=== PATIENT | female | born 1985 | race Caucasian/White ===

== ENCOUNTER 2023-06-03 08:53 | Outpatient (CLI) | payer BC, SELFPAY | END 2023-06-03 08:54 | disposition home or self-care (01) | PROVIDERS: PCP Physician Assistant Medical; Visit Provider Internal Medicine | DX: E07.89 Other specified disorders of thyroid (principal) | CPT/HCPCS: 80053; 84439; 84443; 84481; 86376 ==

== ENCOUNTER 2023-06-04 12:07 | Outpatient (CLI) | payer BC, SELFPAY ==
--- NOTE | 2023-06-04 12:15 | CRLHL7_ITS ---
For Patients: As a result of the Century Cures Act, medical imaging exams and procedure reports are released immediately into your electronic medical record. You may view this report before your referring provider. If you have questions, please contact your health care provider. INDICATION: THYROID PAIN COMPARISON: none TECHNIQUE: Zhang scale and color Doppler images were acquired of the thyroid gland. FINDINGS: The thyroid gland demonstrates heterogeneous echogenicity within the right thyroid lobe and has a smooth outer contour. The right lobe measures 5.7 x 2.1 x 2.4 cm and the left lobe measures 5.3 x 1.5 x 1.5 cm in size. No defined nodule. Isthmus measured 2.8 millimeters. The color Doppler images demonstrate mildly increased vascularity. There is no evidence of cervical lymphadenopathy or parathyroid mass. IMPRESSION: No dominant or suspicious thyroid nodule although the right thyroid lobe is diffusely heterogeneous. Mild increased vascularity is noted. This could represent thyroiditis. Dictated by Paul Veloz MD @ 06/04/2023 1:09:35 PM (Electronically Signed)
== END 2023-06-04 12:08 | disposition home or self-care (01) ==
LOC: US 12:09
PROVIDERS: Visit Provider Internal Medicine
DX: E07.89 Other specified disorders of thyroid (principal); E04.1 Nontoxic single thyroid nodule
CPT/HCPCS: 76536